=== PATIENT | female | born 1985 | race Two or more races ===

== ENCOUNTER → 2016-10-07 | Emergency (ER) | payer SELFPAY ==
[~2016-10-07] VITALS: Ht 162.6 cm; Wt 61.2 kg
[~2016-10-07] MED LIST: DEXTROSE 50%-WATER 50 ML DISP.SYRIN ONE; NITROFURANTOIN/NITROFURAN MAC 100 MG CAPSULE ONE
--- NOTE | 2016-10-07 21:56 | NUR ---
pt [place] from the streets. per report, found walking, altered. pt awake, incoherent. per report, possible meth use. placed on monitor. stable vitals. awaiting md hernandez.
--- NOTE | 2016-10-07 22:07 | NUR ---
dr ghosh at bedside for eval.
--- NOTE | 2016-10-07 22:20 | NUR ---
iv line started blood drawn and sent to lab.
[2016-10-07 22:31] LABS: BASOPHILS % (AUTO) 0.4 % (0.0-2.0); EOSINOPHILS # (AUTO) 0.1 /CMM (0.0-0.7); EOSINOPHILS % (AUTO) 1.2 % (0.0-6.0); HEMATOCRIT 43 % (33-45); HEMOGLOBIN 13.9 g/dL (11.5-14.8); LYMPHOCYTES % (AUTO) 31.7 % (20.0-44.0); MEAN CORPUSCULAR HEMOGLOBIN 28 PG (26.0-33.0); MEAN CORPUSCULAR HGB CONC 32 g/dl (31.0-36.0); MEAN CORPUSCULAR VOLUME 86 fL (82-100); MONOCYTES # (AUTO) 0.5 /CMM (0.1-1.30); MONOCYTES % (AUTO) 7.4 % (2.0-12.0); NEUTROPHILS # (AUTO) 3.8 /CMM (1.8-8.9); NEUTROPHILS % (AUTO) 59.3 % (43.0-81.0); PLATELET COUNT (AUTO) 306 /CMM (150-450); RDW COEFFICIENT OF VARIATION 15.1 (11.5-15.0); RED BLOOD CELL COUNT(AUTO) 5.03 MIL/uL (4.0-5.2); WHITE BLOOD COUNT (AUTO) 6.5 K/uL (4.3-11.0)
[2016-10-07 22:44] LABS: CALCIUM, SERUM 8.9 mg/dL (8.5-10.1); CARBON DIOXIDE 25 mmol/L (21-32); CHLORIDE 103 mmol/L (98-107); CREATININE 0.6 mg/dL (0.6-1.3); GLUCOSE 86 mg/dL (74-106); POTASSIUM 4.3 mmol/L (3.5-5.1); SODIUM SERUM 137 mmol/L (136-145); UREA NITROGEN, BLOOD 9 mg/dL (7-18)
[2016-10-07] MEDS: DEXTROSE 50%-WATER 50 ML DISP.SYRIN IVP ONE (22:45)
[2016-10-07 22:55] LABS: ALANINE AMINOTRANSFERASE 19 U/L (12-78); ALBUMIN 3.8 g/dL (3.4-5.0); ALKALINE PHOSPHATASE 56 U/L (46-116); ASPARTATE AMINOTRANSFERASE 23 U/L (15-37); BILIRUBIN,DIRECT 0.1 mg/dL (0.0-0.2); BILIRUBIN,TOTAL 0.5 mg/dL (0.2-1.0); TOTAL PROTEIN, SERUM 7.6 g/dL (6.4-8.2)
[2016-10-07 22:57] LABS: ACETAMINOPHEN 0 ug/ml (10-30); ALCOHOL, BLOOD < 3 mg/dL (0-0); SALICYLATE 2.1 mg/dL (2.8-20.0)
[2016-10-07 23:25] LABS: APPEARANCE,URINE CLOUDY (CLEAR); BILIRUBIN,URINE NEGATIVE (NEGATIVE); BLOOD, URINE 3+ Ery/uL (NEGATIVE); COLOR,URINE YELLOW (YELLOW); KETONES,URINE TRACE (NEGATIVE); LEUKOCYTE ESTERASE ,URINE TRACE (NEGATIVE); NITRITE, URINE POSITIVE (NEGATIVE); PH,URINE 6.5 (5.0-8.0); PROTEIN,URINE NEGATIVE (NEGATIVE); UGLUCOSE TRACE mg/dL (NEGATIVE)
--- NOTE | 2016-10-07 23:31 | NUR ---
blood sugar recheck, 193. dr ghosh aware.
[2016-10-07 23:34] LABS: BACTERIA,URINE 3+ /HPF (None Seen); SQUAMOUS EPITHELIAL CELL,UR Moderate /HPF (None Seen)
[2016-10-07 23:35] VITALS: BP 120/74
[2016-10-07 23:35] LABS: CALCIUM OXALATE CRYSTALS,UR Moderate /HPF (None Seen); URINE AMORPHOUS URATE Moderate /HPF (None Seen)
--- NOTE | 2016-10-07 23:39 | NUR ---
report to geovanni gandara for tamia.
--- NOTE | 2016-10-07 23:41 | NUR ---
Assumed care of pt. pt continues to sleep in bed w/ resp even & unlabored, nad noted.
[2016-10-08] MEDS: NITROFURANTOIN/NITROFURAN MAC 100 MG CAPSULE PO ONE (01:24)
--- NOTE | 2016-10-08 01:24 | NUR ---
Medicated as ordered, resp even & unlabored, continues to sleep w/ nad noted.
== END | disposition home or self-care (01) ==
LOC: ER 21:57 → EDBD 21:57
DX: E16.2 Hypoglycemia, unspecified (principal); F15.10 Other stimulant abuse, uncomplicated
CPT/HCPCS: 36415; 70450; 80048; 80076; 80305; 80329; 81001; 82962 ×3; 84703; 85025; 87086; 93005; 96374; 99285; A4606; G0480 ×2; Z7610; 81000-TC; G6039-TC